=== PATIENT | male | born 1960 | race Caucasian/White ===

== ENCOUNTER 2018-09-07 07:04 | Day surgery (SDC) | payer BC ==
[~2018-09-07 07:04] MED LIST: ASPIRIN325 MG PO; BENICAR HCT 201 EAC1 PO; OMEPRAZOLE20 M1 PO; ZOCOR40 MG PO
[2018-09-07 07:32] LABS: HEMATOCRIT 40.5 % (42.0-54.0); MCH 28.9 pg (26.0-34.0); MCHC 34.6 g/dL (31.0-37.0); MCV 83.5 fL (80.0-100.0); MEAN PLATELET VOLUME 9.4 fL (7.4-10.4); RBC 4.85 10x6/uL (4.20-6.10); RDW 14.6 % (11.5-14.5); WBC 3.9 10x3/uL (4.8-10.8)
[2018-09-07 07:51] LABS: ANION GAP 13.9 mmol/L (8-16); CALCIUM 8.9 mg/dL (8.5-10.1); CARBON DIOXIDE 27.4 mmol/L (21.0-32.0); CREATININE - SERUM 1.2 mg/dL (0.6-1.3); POTASSIUM - SERUM 3.3 mmol/L (3.5-5.1)
[2018-09-07 08:12] VITALS: BP 118/69; BMI 33.3
[2018-09-07] MEDS ORDERED: MIRALAX17 GM PO (13:41)
[2018-09-07] MEDS ORDERED: VALIUM5 MG PO (13:41)
[2018-09-07] MEDS ORDERED: LIDOCAINE50 GM TOPICAL (13:42)
[2018-09-07] MEDS ORDERED: TUCKS MEDICATE1 EACH TOPICAL (13:42)
[2018-09-07] MEDS ORDERED: DEMEROL100 MG PO (13:43)
--- NOTE | 2018-09-08 13:16 | OP ---
PATIENT NAME: JUAN SALAZAR MEDICAL RECORD: [id number] :60 [facility] DATE: SURGEON: JOI BROWER MD DATE OF OPERATION: 09/07/2018 SURGEON: Joi Brower MD PREOPERATIVE DIAGNOSIS: Anorectal fistula. POSTOPERATIVE DIAGNOSIS: Anorectal fistula. PROCEDURES PERFORMED: 1. Rectal examination under anesthesia. 2. Fistulotomy. ANESTHESIA: General. COMPLICATIONS: None. SPECIMENS: None. Case was contaminated. OPERATIVE COURSE: After consent was obtained, the patient was taken to the operating room and placed in the supine position on the operating table. Next, general anesthesia was given. Timeout was taken to confirm correct patient and procedure. The patient was then placed in the lithotomy position. The perineum was prepped and draped in typical sterile fashion. A 30 cc of local anesthetic were injected around the perineum for a perineal block. Digital rectal exam was performed. There was activated expression of pus in the anterior midline on palpation of the sinus tract in the left anterior buttock. The rectum was serially dilated using the [place] retractors. There was a sinus tract opening on deeper area of previous perirectal abscess and incision and drainage. When this area was palpated again, pus was seen to be expressed from the anterior midline. The fistula ran from approximately 1:00 p.m. on the left buttock to the noon position in the anterior midline. A lacrimal probe was placed. The fistula was quite superficial and it did not extend through the internal and external sphincter. At this time, the fistula tract was marsupialized using electrocautery over the lacrimal probe. The probe was removed. The fistula bed was cauterized. At this time, the rectum was packed with Gelfoam and Americaine. At the end of the case, all needle and instrument counts were correct. No complications occurred. The patient extubated and transferred to PACU in stable condition. TRANSINT:[id number] Voice Confirmation ID: [id number] DOCUMENT ID: [id number] JOI BROWER MD at 1316 CC: [id number] DICTATION DATE: 09/07/18 1350 ICE CREAM FREEZER: 09/07/18 2220 [facility] 09/07/18 [facility] [address] [place] [address]
== END 2018-09-07 17:00 | disposition home or self-care (01) ==
LOC: D.OPS 07:04
PROVIDERS: Anesthesiology
DX: K60.5 Anorectal fistula (principal); Z01.812 Encounter for preprocedural laboratory examination